=== PATIENT | male | born 1955 | race Caucasian/White ===

== ENCOUNTER 2018-11-03 12:39 | Inpatient (IN) | payer MEDICARE ==
[~2018-11-03] VITALS: Ht 167.6 cm; Wt 82.0 kg
--- NOTE | 2018-11-03 13:14 | ERD ---
ER Documentation Chief Complaint Chief Complaint dialysis catheter bleed, did not start dialysis; HPI The patient is a 63-year-old male, presenting to the ER because of bleeding from the left upper extremity AV fistula, unable to have dialysis today. He denies any fever, chills, neck pain, chest pain, dyspnea, abdominal pain, complains of diarrhea for 1 day, denies hematemesis/hematochezia. Past medical history: Chronic kidney disease On hemodialysis Friday and Friday, diabetes mellitus, hypertension, chronic right ankle ulcer, hepatitis C, dyslipidemia, BPH Past surgical history: Left upper extremity AV fistula, left below-knee amputation ROS All systems reviewed and are negative except as per history of present illness. Medications Home Meds Reported Medications Acetaminophen* (Acetaminophen*) 650 Mg Tablet, 650 MG PO Q4 PRN for MILD PAIN LEVEL 1-3, #30 TAB 11/03/18 Amlodipine Besylate* (Norvasc*) 10 Mg Tablet, 10 MG PO DAILY, TAB HOLD FOR SBP <110 OR HR <60 11/03/18 Sertraline Hcl* (Zoloft*) 50 Mg Tablet, 50 MG PO DAILY, #30 TAB 11/03/18 [place]-3/Dha/Epa/Fish Oil (Fish Oil 500 mg Softgel) 1 Each Capsule, 1 EACH PO DAILY, CAP 11/03/18 Gabapentin* (Gabapentin*) 300 Mg Capsule, 300 MG PO TID, #90 CAP 11/03/18 Pravastatin Sodium* (Pravastatin Sodium*) 40 Mg Tablet, 40 MG PO HS, TAB 11/03/18 Hydralazine Hcl* (Hydralazine Hcl*) 50 Mg Tab, 50 MG PO QID, #60 TAB HOLD FOR SBP<110 OR HR<60 11/03/18 Propranolol Hcl* (Propranolol Hcl*) 10 Mg Tablet, 10 MG PO BID, TAB HOLD FOR SBP<110 OR HR<60 11/03/18 Terazosin Hcl* (Terazosin Hcl*) 10 Mg Capsule, 10 MG PO HS, CAP 11/03/18 Sevelamer Carbonate* (Renvela*) 800 Mg Tablet, 2.4 GM PO WITH MEALS, TAB 11/03/18 Magnesium Hydroxide* (Milk Of Magnesia*) 400 Mg/5 Ml Oral.susp, 30 ML PO QHS PRN for CONSTIPATION, ML 11/03/18 Folic Acid/Vitamin B Comp W-C (Nephrocaps Capsule) 1 Mg Capsule, 1 MG PO DAILY, CAP 11/03/18 Aspirin (Low Dose Aspirin) 81 Mg Tablet.dr, 81 MG PO DAILY, #30 TAB 11/03/18 Omeprazole* (Omeprazole*) 20 Mg Capsule.dr, 20 MG PO DAILY, #30 CAP 11/03/18 Ascorbic Acid* (Vitamin C*) 500 Mg Capsule.sa, 500 MG PO DAILY, CAP 11/03/18 Allergies Allergies: Coded Allergies: Penicillins (Verified Allergy, Unknown, 11/03/18) Physical Exam Vitals Vital Signs Date Temp Pulse Resp B/P (MAP) Pulse Ox O2 O2 Flow FiO2 Time Delivery Rate 11/03/18 98.1 73 21 147/64 100 Room Air 17:27 (91) 11/03/18 70 19 121/67 98 Room Air 15:25 (85) 11/03/18 Nasal 2 13:41 Cannula 11/03/18 98.3 69 18 100/64 93 Room Air 13:20 (76) 11/03/18 98.3 69 18 100/64 93 12:48 (76) Physical Exam Const: No acute distress. Head: Atraumatic. Eyes: Normal Conjunctiva. ENT: Normal External Ears, Nose and Mouth. Neck: Full range of motion. No meningismus. Resp: Clear to auscultation bilaterally. Cardio: Regular rate and rhythm. Abd: Soft, non distended, normal bowel sounds, non tender. Skin: No petechiae or rashes. Back: No midline or flank tenderness. Ext: Left upper extremity AV fistula with actively bleeding, palpable pulses, was able to stop with pressure dressing Neur: Awake and alert. No focal deficit Psych: Normal Mood and Affect. Result Diagram: 11/03/18 1335 11/03/18 1335 Results 24 hrs Laboratory Tests Test 11/03/18 13:35 11/03/18 16:46 White Blood Count 8.2 10^3/ul Red Blood Count 2.39 10^6/ul Hemoglobin 7.5 g/dl Hematocrit 23.2 % Mean Corpuscular Volume 97.1 fl Mean Corpuscular Hemoglobin 31.4 pg Mean Corpuscular Hemoglobin Concent 32.3 g/dl Red Cell Distribution Width 16.2 % Platelet Count 190 10^3/UL Mean Platelet Volume 9.1 fl Immature Granulocytes % 0.500 % Neutrophils % 79.1 % Lymphocytes % 9.7 % Monocytes % 5.6 % Eosinophils % 4.9 % Basophils % 0.2 % Nucleated Red Blood Cells % 0.0 /100WBC Immature Granulocytes # 0.040 10^3/ul Neutrophils # 6.5 10^3/ul Lymphocytes # 0.8 10^3/ul Monocytes # 0.5 10^3/ul Eosinophils # 0.4 10^3/ul Basophils # 0.0 10^3/ul Nucleated Red Blood Cells # 0.0 10^3/ul Sodium Level 139 mmol/L Potassium Level 5.6 mmol/L Chloride Level 98 mmol/L Carbon Dioxide Level 31 mmol/L Anion Gap 10 Blood Urea Nitrogen 48 mg/dl Creatinine 7.16 mg/dl Est Glomerular Filtrat Rate mL/min 8 mL/min Glucose Level 125 mg/dl Calcium Level 9.3 mg/dl Bedside Glucose 309 mg/dL Current Medications Medications Dose Sig/Spike Start Time Status Last (Trade) Ordered Route PRN Stop Time Admin Dose Reason Admin Sodium 30 gm ONCE STAT 11/03/18 DC 11/03/18 Polystyrene PO 15:28 16:50 Sulfonate 11/03/18 17:45 (Kayexelate 15 Gm Kit (Powder+Sorbi adriano)) Albuterol 15 mg ONCE STAT 11/03/18 DC 11/03/18 (Proventil INH 15:28 17:01 0.5% (Neb)) 11/03/18 15:31 Insulin 5 unit ONCE STAT 11/03/18 DC 11/03/18 Human IVP 15:28 16:48 Regular 11/03/18 15:31 (Humulin R) Dextrose 50 ml ONCE ONCE 11/03/18 DC 11/03/18 (D50w IV 15:30 16:38 Syringe) 11/03/18 15:31 IV Flush 3 ml PER 11/03/18 (NS 3 ml) PROTOCOL IV 17:30 Ondansetron 4 mg Q6H PRN 11/03/18 HCl (Zofran IV 17:30 Inj) NAUSEA/VOMITI NG 650 mg Q6H PRN 11/03/18 Acetaminophen PO .PAIN 1-3 17:30 (Tylenol OR TEMP Tab) 650 mg Q4 PRN PO 11/03/18 DC Acetaminophen MILD PAIN 17:30 (Tylenol LEVEL 1-3 11/03/18 17:37 Tab) Amlodipine 10 mg DAILY PO 11/04/18 Besylate 09:00 (Norvasc) Ascorbic 500 mg DAILY PO 11/04/18 Acid 09:00 (Vitamin C) Gabapentin 300 mg TID PO 11/03/18 (Neurontin) 21:00 Hydralazine 50 mg QID PO 11/03/18 HCl 21:00 (Apresoline) Magnesium 30 ml QHS PRN 11/03/18 Hydroxide PO 17:30 (Milk Of Mag) CONSTIPATION Propranolol 10 mg BID PO 11/03/18 HCl 21:00 (Inderal) Sertraline 50 mg DAILY PO 11/04/18 HCl 09:00 (Zoloft) Sevelamer 2.4 gm WITH MEALS 11/03/18 UNV Carbonate PO 18:00 (Renvela) Terazosin 10 mg HS PO 11/03/18 HCl 21:00 (Hytrin) 1 each DAILY PO 11/04/18 UNV Miscellaneous 09:00 Information 40 mg DAILY@0600 11/04/18 Pantoprazole PO 06:00 (Protonix Tab) 10 mg HS PO 11/03/18 Atorvastatin 21:00 Calcium (Lipitor) Sodium 30 gm ONCE ONCE 11/03/18 DC Polystyrene PO 18:00 Sulfonate 11/03/18 18:01 (Kayexalate) Procedures/[place] [address] Radiology Main Line: [phone] DIAGNOSTIC IMAGING REPORT Patient: KEN GIBSON : 1955 Age: 63 Sex: M MR #: [id number] DOS: 11/03/18 1315 Ordering MD: ERI UNGER MD Location: E/R Room/Bed: PROCEDURE: XR Chest. CLINICAL INDICATION: Chest pain TECHNIQUE: Single portable view of the chest was obtained COMPARISON: None FINDINGS: There is mild cardiomegaly. There are mild bibasilar atelectatic changes. The lungs are otherwise clear. There is no pleural effusion or pneumothorax. RPTAT: AA IMPRESSION: Mild bibasilar atelectatic changes. Mild cardiomegaly. .Marcos Villeda MD, MD Date Time Electronically viewed and signed by .Marcos Villeda MD, on 11/03/2018 14:11 .S/ CC: ERI UNGER MD [phone] EKG: Read by emergency physician Rate/Rhythm: Normal Sinus Rhythm 68 beats/min QRS, ST, T-waves: No ST elevation, no T inversion, low voltage Impression: Abnormal EKG Consultation: I discussed the patient with the vascular surgeon Dr. Galdamez at 4:45pm, who was made aware of the lab, the patient condition and he accepted the consult MEDICAL MAKING DECISION: The patient is a 63-year-old male, presenting with acute bleeding of the left upper extremity AV fistula, acute hyperkalemia.. He was treated with partial compression to stop the bleeding, D50 IV, 5 unit of regular insulin IV, Kayexalate 30 g p.o. and albuterol 15 mg nebulizer for acute hyperkalemia with good response Critical Care: Time: 35 minutes excluding all billable procedures. Treatments/Evaluations: Close monitoring and treatment of unstable vital signs, cardiorespiratory, and neurologic status, while maintaining tight balance of fluid, respiratory, and cardiac interventions. Departure Diagnosis: Primary Impression: Hemorrhage of arteriovenous fistula Additional Impressions: Hyperkalemia Anemia Condition: Stable Comments I discussed the findings with the patient. I discussed the patient with Dr Sparks at 4:20pm , who was made aware of the lab, the treatment, the patient condition. The patient is admitted to [facility] Disclaimer: Inadvertent spelling and grammatical errors are likely due to EHR/dictation software use and do not reflect on the overall quality of patient care. Also, please note that the electronic time recorded on this note does not necessarily reflect the actual time of the patient encounter. ERI UNGER MD November 03, 2018 13:14
[2018-11-03] MEDS ORDERED: OMEP20CA16 PO (14:03)
[2018-11-03] MEDS ORDERED: ASCO500C7 PO (14:03)
[2018-11-03] MEDS ORDERED: FOLI1CAP PO (14:04)
[2018-11-03] MEDS ORDERED: MAGN400O19 PO (14:04)
[2018-11-03] MEDS ORDERED: ASPI81TA52 PO (14:04)
[2018-11-03] MEDS ORDERED: SEVE800T7 PO (14:05)
[2018-11-03] MEDS ORDERED: TERA10CA3 PO (14:06)
[2018-11-03] MEDS ORDERED: PROP10TA6 PO (14:07)
[2018-11-03] MEDS ORDERED: HYDR-3672 PO (14:08)
[2018-11-03] MEDS ORDERED: PRAV40TA76 PO (14:08)
[2018-11-03] MEDS ORDERED: OMEG-144 PO (14:09)
[2018-11-03] MEDS ORDERED: GABA300C16 PO (14:09)
[2018-11-03] MEDS ORDERED: SERT50TA PO (14:10)
[2018-11-03] MEDS ORDERED: ACET-2047 PO (14:11)
[2018-11-03] MEDS ORDERED: AMLO-218 PO (14:11)
[2018-11-03] MEDS ORDERED: INSULIN REGULAR, HUMAN 100 UNIT/1 ML 3ML VIAL IVP STA (15:28)
[2018-11-03] MEDS ORDERED: ALBUTEROL 0.5% (NEB) 2.5 MG/0.5 ML AMP INH STA (15:28)
[2018-11-03] MEDS ORDERED: DEXTROSE 50% 50 ML SYRINGE IV ONE (15:30)
[2018-11-03] MEDS: SODIUM POLYSTYRENE 15 GM KIT (POWDER + SORBITOL) PO STA ×2 (16:39→16:50)
[2018-11-03] MEDS ORDERED: NACL 0.9% 3 ML SYG IV SCH (17:30)
[2018-11-03] MEDS ORDERED: ACETAMINOPHEN 325 MG TAB PO PRN ×2 (17:30)
[2018-11-03] MEDS ORDERED: MAGNESIUM HYDROXIDE 30ML CUP PO PRN (17:30)
[2018-11-03] MEDS ORDERED: ONDANSETRON 4 MG INJ IV PRN (17:30)
--- NOTE | 2018-11-03 17:45 | HP ---
Date/Time of Note Date/Time of Note DATE: 11/03/18 TIME: 17:30 Assessment/Plan VTE Prophylaxis SCD applied (from Nsg): Yes Pharmacological prophylaxis: NA/contraindicated Pharm contraindication: bleeding Lines/Catheters IV Catheter Type (from Nrsg): Saline Lock Assessment/Plan Assessment/Plan 63 yo obese man with history of ESRD presents with bleeding fistula #Bleeding fistula - Currently has tourniquet on arm - Holding antiplatelets, anticoag. - Dr. Allan consulted - Patient is medically optimized for urgent vascular surgery. No further cardiac or medical workup needed. #ESRD - Will consult renal for routine HD. #HTN - Continue home antihypertensives #Dyslipidemia - Cont home statin DVT: SCDs GI: PPI Result Diagram: 11/03/18 1335 11/03/18 1335 HPI/ROS Admit Date/Time Admit Date/Time 03 Nov 2018 Hx of Present Illness Mr. Taylor is an obese man with ESRD who presents with a bleeding AV fistula. He has a bad habit of picking at his fistula scabs. A week ago was at [facility] ED for the same problem, but it was dressed in the ED and he did not require admission or surgery. Last dialysis was Friday (3 days [facility]). On Friday he peeled his dressing back and picked at his scab a bit and it started oozing b lood, so he put the dressing back. Friday he went to dialysis as scheduled, the nurse removed the dressing and there was a brisk jet of high pressure arterial blood. The patient was sent to the ED without getting dialysis. He stays at [facility]. In the ED he was afebrile, vitals normal. Labs notable for Hgb 7.5 and K 5.6, otherwise unremarkable. Dr. Segura evaluated the fistula for repair but was unable. Tourniquet was left in place, Dr. Allan from vascular surgery was called. ROS Denies recent fever, chills, night sweats, anorexia, weight loss, dysphagia, d yspnea, cough, chest pain/pressure/palpitations, nausea, vomiting, abdominal pain ,diarrhea, constipation, melena, hematochezia. 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 Social History Alcohol Use: none Smoking Status: Never smoker Drug Use: none Exam/Review of Systems Vital Signs Vitals Vital Signs Date Temp Pulse Resp B/P (MAP) Pulse Ox O2 O2 Flow FiO2 Time Delivery Rate 11/03/18 98.1 73 21 147/64 100 Room Air 17:27 (91) 11/03/18 2 13:41 Exam Exam Gen: Well developed man supine in gurney, some discomfort from tourniquet. Eyes: PERRL, no icterus HEENT: Moist mucous membranes, clear oropharynx Neck: No lymphadenopathy, supple Card: Regular rate and rhythm, no murmurs Pulm: Clear to auscultation bilaterally. Abd: Soft, nontender, nondistended. Normoactive bowel sounds. Ext: L upper arm has fistula firmly secured with tourniquet. Distally it is mottled with poor pulses. Skin: warm, dry, well perfused. LUIS DANIEL WATKINS MD November 03, 2018 17:40
[2018-11-03] MEDS ORDERED: NA POLYST SULFON 15 GM/60 ML BTL PO ONE (18:00)
[2018-11-04] VITALS (21 sets, daily range): BP systolic 119–165; BP diastolic 54–72; PULSE 59–85; RESP 13–19; Ht 167.6 cm; Wt 82.0 kg
[2018-11-04] MEDS: ATORVASTATIN 10 MG TAB PO SCH ×2 (03:30→21:19)
[2018-11-04] MEDS: FISH OIL 1,000 MG CAP PO SCH ×2 (03:30→09:19)
[2018-11-04] MEDS: TERAZOSIN 5 MG CAP PO SCH ×2 (03:30→21:19)
[2018-11-04] MEDS: SEVELAMER CARBONATE 2.4 GM PKT PO SCH ×4 (03:30→16:59)
[2018-11-04] MEDS: GABAPENTIN 300 MG CAP PO SCH ×4 (03:30→21:19)
[2018-11-04] MEDS: PROPRANOLOL 10 MG TAB PO SCH ×3 (03:30→21:19)
[2018-11-04] MEDS ORDERED: SOD CHLORIDE 0.9% 1,000 ML IV SCH (05:00)
[2018-11-04] MEDS ORDERED: DEXTROSE 50% 50 ML SYRINGE IV PRN ×2 (05:30)
[2018-11-04] MEDS ORDERED: GLUCOSE GEL 15 GRAM TUBE BUCCAL PRN (05:30)
[2018-11-04] MEDS ORDERED: GLUCAGON 1 MG INJ IM PRN (05:30)
[2018-11-04] MEDS ORDERED: GLUCOSE GEL 15 GRAM TUBE PO PRN ×2 (05:30)
[2018-11-04] MEDS: INSULIN ASPART [NOVOLOG] 3 ML PEN SC SCH ×5 (06:00→21:00)
[2018-11-04] MEDS: PANTOPRAZOLE (EC) 40 MG TAB PO SCH (06:17)
[2018-11-04] MEDS ORDERED: SOD CHLORIDE 0.9% 250 ML IV* ONE (08:06)
[2018-11-04] MEDS: ASCORBIC ACID 500 MG TAB PO SCH (09:19)
[2018-11-04] MEDS: AMLODIPINE 10 MG TAB PO SCH (09:19)
[2018-11-04] MEDS: SERTRALINE 50 MG TAB PO SCH (09:19)
--- NOTE | 2018-11-04 11:21 | PN ---
Date/Time of Note Date/Time of Note DATE: 11/04/18 TIME: 11:17 Assessment/Plan VTE Prophylaxis Risk score (from Nsg)>0 risk: 4 SCD applied (from Ns): No SCD contraindicated: other (no) Pharmacological prophylaxis: NA/contraindicated Pharm contraindication: bleeding Lines/Catheters IV C[facility]ter Type (from [facility]): Saline Lock Urinary Cath still in place: No Assessment/Plan Assessment/Plan 63 yo obese man with history of ESRD presents with bleeding fistula #Bleeding fistula - Currently has tourniquet on arm - Holding antiplatelets, anticoag. - Dr. Allan consulted - Patient is medically optimized for urgent vascular surgery. No further cardiac or medical workup needed. #ESRD - Will consult renal for routine HD. #HTN - Continue home antihypertensives #Dyslipidemia - Cont home statin DVT: SCDs GI: PPI Result Diagram: 11/04/18 0640 11/04/18 0640 Subjective 24 Hr Interval Summary Free Text/Dictation No acute overnight events. Patient seen by Dr. Allan. Plan for surgery tonight after tranfusion. Getting 2 units pRBCs. Exam/Review of Systems Exam Vitals Vital Signs Date Temp Pulse Resp B/P (MAP) Pulse Ox O2 O2 Flow FiO2 Time Delivery Rate 11/04/18 85 08:16 11/04/18 99.3 18 155/67 91 07:07 (96) 11/04/18 Room Air 03:20 11/03/18 2 13:41 Exam Gen: Well developed man supine in gurney, comfortable. Eyes: PERRL, no icterus HEENT: Moist mucous membranes, clear oropharynx Neck: No lymphadenopathy, supple Card: Regular rate and rhythm, no murmurs Pulm: Clear to auscultation bilaterally. Abd: Soft, nontender, nondistended. Normoactive bowel sounds. Ext: L upper arm has fistula firmly secured with dressing. Distally, extremity is slightly swollen but intact peripheral pulses. Skin: warm, dry, well perfused. Results Results 24hrs Laboratory Tests Test 11/03/18 13:35 11/03/18 16:46 11/04/18 06:14 11/04/18 06:40 White Blood Count 8.2 8.4 Red Blood Count 2.39 L 2.17 L Hemoglobin 7.5 L 6.9 *L Hematocrit 23.2 L 21.2 L Mean Corpuscular 97.1 97.7 Volume Mean Corpuscular 31.4 31.8 Hemoglobin Mean Corpuscular 32.3 32.5 Hemoglobin Concent Red Cell 16.2 H 16.2 H Distribution Width Platelet Count 190 176 Mean Platelet Volume 9.1 9.5 Immature 0.500 H 0.500 H Granulocytes % Neutrophils % 79.1 H 80.3 H Lymphocytes % 9.7 L 9.4 L Monocytes % 5.6 5.0 Eosinophils % 4.9 4.6 Basophils % 0.2 0.2 Nucleated Red Blood 0.0 0.0 Cells % Immature 0.040 H 0.040 H Granulocytes # Neutrophils # 6.5 6.8 Lymphocytes # 0.8 0.8 Monocytes # 0.5 0.4 Eosinophils # 0.4 0.4 Basophils # 0.0 0.0 Nucleated Red Blood 0.0 0.0 Cells # Sodium Level 139 140 Potassium Level 5.6 H 5.3 H Chloride Level 98 101 Carbon Dioxide Level 31 28 Anion Gap 10 11 Blood Urea Nitrogen 48 H 57 H Creatinine 7.16 H 7.90 H Est Glomerular 8 L 7 L Filtrat Rate mL/min Glucose Level 125 120 Calcium Level 9.3 9.4 Bedside Glucose 309 H 142 Hemoglobin A1c 5.7 Phosphorus Level 4.0 Magnesium Level 2.5 Total Bilirubin 0.1 L Direct Bilirubin 0.00 Indirect Bilirubin 0.1 Aspartate Amino 11 L Transf (AST/SGOT) Alanine 18 Aminotransferase (AL T/SGPT) Alkaline Phosphatase 86 Total Protein 5.7 L Albumin 3.3 Globulin 2.40 Albumin/Globulin 1.37 Ratio Thyroid Stimulating 2.290 Hormone (TSH) Test 11/04/18 09:16 Bedside Glucose 140 Medications Medication Current Medications IV Flush (NS 3 ml) 3 ml PER PROTOCOL IV ; Start 11/03/18 at 17:30 Ondansetron HCl (Zofran Inj) 4 mg Q6H PRN IV NAUSEA/VOMITING; Start 11/03/18 at 17:30 Acetaminophen (Tylenol Tab) 650 mg Q6H PRN PO .PAIN 1-3 OR TEMP Last administered on 11/04/18at 09:28; Admin Dose 650 MG; Start 11/03/18 at 17:30 Amlodipine Besylate (Norvasc) 10 mg DAILY PO Last administered on 11/04/18at 09:19; Admin Dose 10 MG; Start 11/04/18 at 09:00 Ascorbic Acid (Vitamin C) 500 mg DAILY PO Last administered on 11/04/18 09:19; Admin Dose 500 MG; Start 11/04/18 at 09:00 Gabapentin (Neurontin) 300 mg TID PO Last administered on 11/04/18at 09:18; Admin Dose 300 MG; Start 11/03/18 at 21:00 Hydralazine HCl (Apresoline) 50 mg QID PO Last administered on 11/04/18at 09:18; Admin Dose 50 MG; Start 11/03/18 at 21:00 Magnesium Hydroxide (Milk Of Mag) 30 ml QHS PRN PO CONSTIPATION; Start 11/03/18 at 17:30 Propranolol HCl (Inderal) 10 mg BID PO Last administered on 11/04/18at 09:19; Admin Dose 10 MG; Start 11/03/18 at 21:00 Sertraline HCl (Zoloft) 50 mg DAILY PO Last administered on 11/04/18at 09:19; Admin Dose 50 MG; Start 11/04/18 at 09:00 Sevelamer Carbonate (Renvela) 2.4 gm WITH MEALS PO ; Start 11/03/18 at 18:00 Terazosin HCl (Hytrin) 10 mg HS PO ; Start 11/03/18 at 21:00 Fish Oil (Fish Oil) 1,000 mg DAILY PO Last administered on 11/04/18at 09:19; Admin Dose 1,000 MG; Start 11/03/18 at 18:30 Pantoprazole (Protonix Tab) 40 mg DAILY@0600 PO Last administered on 11/04/18at 06:17; Admin Dose 40 MG; Start 11/04/18 at 06:00 Atorvastatin Calcium (Lipitor) 10 mg HS PO ; Start 11/03/18 at 21:00 Diagnostic Test (Pha) (Accu-Chek) 1 ea 02 XX ; Start 11/05/18 at 02:00 Insulin Aspart (Novolog Insulin Pen) NOVOLOG *MILD* ALGORI... Q4 SC ; Start 11/04/18 at 05:00 Sodium Chloride 1,000 ml @ 30 mls/hr Q24H IV Last administered on 11/04/18at 05:00; Admin Dose 30 MLS/HR; Start 11/04/18 at 05:00; Stop 11/05/18 at 14:19 Miscellaneous Information 1 ea NOTE XX ; Start 11/04/18 at 05:30 Glucose (Glutose) 15 gm Q15M PRN PO DECREASED GLUCOSE; Start 11/04/18 at 05:30 Glucose (Glutose) 22.5 gm Q15M PRN PO DECREASED GLUCOSE; Start 11/04/18 at 05:30 Dextrose (D50w Syringe) 25 ml Q15M PRN IV DECREASED GLUCOSE; Start 11/04/18 at 05:30 Dextrose (D50w Syringe) 50 ml Q15M PRN IV DECREASED GLUCOSE; Start 11/04/18 at 05:30 Glucagon (Glucagen) 1 mg Q15M PRN IM DECREASED GLUCOSE; Start 11/04/18 at 05:30 Glucose (Glutose) 15 gm Q15M PRN BUCCAL DECREASED GLUCOSE; Start 11/04/18 at 05:30 LUIS DANIEL WATKINS MD November 04, 2018 11:20
--- NOTE | 2018-11-04 15:15 | CONS ---
Assessment/Plan Assessment/Plan Assessment/Plan (Daily) 1. acute hyperkalemia 2. LUE AVF site bleeding possibly arterial bleeding 3. ESRD on HD TTS schedule 4. H/o HTN 5. Morbid obesity Plan: HD today after AVF surgery - pt regular scheedule for HD is TTS, last HD on friday10/31/18 planning for AVF repair BP stable, afebrile will continue to follow up Thanks for consultation, I will continue to follow up Consultation Date/Type/Reason Admit Date/Time 03 Nov 2018 Date of Consultation: November 04, 2018 Type of Consult NEPHROLOGY Reason for Consultation ESRD on HD with AVF bleeding ,a cute hyperkalemia Requesting Provider: FELIPE AL MD Date/Time of Note DATE: 11/04/18 TIME: 15:15 Hx of Present Illness 63 obese man with ESRD who presents with a bleeding AV fistula. He has a bad habit of picking at his fistula scabs. A week ago was at [facility] ED for the same problem, but it was dressed in the ED and he did not require admission or surgery. Last dialysis was Friday (3 days [employer]). On Friday he peeled his dressing back and picked at his scab a bit and it started oozing blood, so he put the dressing back. Friday he went to dialysis as scheduled, the nurse removed the dressing and there was a brisk jet of high pressure ar terial blood. The patient was sent to the ED without getting dialysis. He stays at [facility]. In the ED he was afebrile, vitals normal. Labs notable for Hgb 7.5 and K 5.6, otherwise unremarkable. vascular surgery has been consulted on the case, paln for AVF repair today and renal has been consulted for HD last HD was done on friday10/31/18 Constitutional: poor po Eyes: no complaints ENT: no complaints Respiratory: no complaints Cardiovascular: no complaints Gastrointestinal: no complaints Genitourinary: no complaints Musculoskeletal: no complaints Skin: no complaints Neurologic: no complaints Endocrine: no complaints Lymphatic: no complaints Psychological: no complaints Immunologic: no complaints Past Medical History Medical History: high cholesterol, hypertension, other (ESD on HD ) Home Meds Reported Medications Acetaminophen* (Acetaminophen*) 650 Mg Tablet, 650 MG PO Q4 PRN for MILD PAIN LEVEL 1-3, #30 TAB 11/03/18 Amlodipine Besylate* (Norvasc*) 10 Mg Tablet, 10 MG PO DAILY, TAB HOLD FOR SBP <110 OR HR <60 11/03/18 Sertraline Hcl* (Zoloft*) 50 Mg Tablet, 50 MG PO DAILY, #30 TAB 11/03/18 [place]-3/Dha/Epa/Fish Oil (Fish Oil 500 mg Softgel) 1 Each Capsule, 1 EACH PO DAILY, CAP 11/03/18 Gabapentin* (Gabapentin*) 300 Mg Capsule, 300 MG PO TID, #90 CAP 11/03/18 Pravastatin Sodium* (Pravastatin Sodium*) 40 Mg Tablet, 40 MG PO HS, TAB 11/03/18 Hydralazine Hcl* (Hydralazine Hcl*) 50 Mg Tab, 50 MG PO QID, #60 TAB HOLD FOR SBP<110 OR HR<60 11/03/18 Propranolol Hcl* (Propranolol Hcl*) 10 Mg Tablet, 10 MG PO BID, TAB HOLD FOR SBP<110 OR HR<60 11/03/18 Terazosin Hcl* (Terazosin Hcl*) 10 Mg Capsule, 10 MG PO HS, CAP 11/03/18 Sevelamer Carbonate* (Renvela*) 800 Mg Tablet, 2.4 GM PO WITH MEALS, TAB 11/03/18 Magnesium Hydroxide* (Milk Of Magnesia*) 400 Mg/5 Ml Oral.susp, 30 ML PO QHS PRN for CONSTIPATION, ML 11/03/18 Folic Acid/Vitamin B Comp W-C (Nephrocaps Capsule) 1 Mg Capsule, 1 MG PO DAILY, CAP 11/03/18 Aspirin (Low Dose Aspirin) 81 Mg Tablet.dr, 81 MG PO DAILY, #30 TAB 11/03/18 Omeprazole* (Omeprazole*) 20 Mg Capsule.dr, 20 MG PO DAILY, #30 CAP 11/03/18 Ascorbic Acid* (Vitamin C*) 500 Mg Capsule.sa, 500 MG PO DAILY, CAP 11/03/18 Medications Current Medications IV Flush (NS 3 ml) 3 ml PER PROTOCOL IV ; Start 11/03/18 at 17:30 Ondansetron HCl (Zofran Inj) 4 mg Q6H PRN IV NAUSEA/VOMITING; Start 11/03/18 at 17:30 Acetaminophen (Tylenol Tab) 650 mg Q6H PRN PO .PAIN 1-3 OR TEMP Last administered on 11/04/18 09:28; Admin Dose 650 MG; Start 11/03/18 at 17:30 Amlodipine Besylate (Norvasc) 10 mg DAILY PO Last administered on 11/04/18 09:19; Admin Dose 10 MG; Start 11/04/18 at 09:00 Ascorbic Acid (Vitamin C) 500 mg DAILY PO Last administered on 11/04/18 09:19; Admin Dose 500 MG; Start 11/04/18 at 09:00 Gabapentin (Neurontin) 300 mg TID PO Last administered on 11/04/18 12:25; Admin Dose 300 MG; Start 11/03/18 at 21:00 Hydralazine HCl (Apresoline) 50 mg QID PO Last administered on 11/04/18 12:25; Admin Dose 50 MG; Start 11/03/18 at 21:00 Magnesium Hydroxide (Milk Of Mag) 30 ml QHS PRN PO CONSTIPATION; Start 11/03/18 at 17:30 Propranolol HCl (Inderal) 10 mg BID PO Last administered on 11/04/18 09:19; Admin Dose 10 MG; Start 11/03/18 at 21:00 Sertraline HCl (Zoloft) 50 mg DAILY PO Last administered on 11/04/18 09:19; Admin Dose 50 MG; Start 11/04/18 at 09:00 Sevelamer Carbonate (Renvela) 2.4 gm WITH MEALS PO ; Start 11/03/18 at 18:00 Terazosin HCl (Hytrin) 10 mg HS PO ; Start 11/03/18 at 21:00 Fish Oil (Fish Oil) 1,000 mg DAILY PO Last administered on 11/04/18 09:19; Admin Dose 1,000 MG; Start 11/03/18 at 18:30 Pantoprazole (Protonix Tab) 40 mg DAILY@0600 PO Last administered on 11/04/18 06:17; Admin Dose 40 MG; Start 11/04/18 at 06:00 Atorvastatin Calcium (Lipitor) 10 mg HS PO ; Start 11/03/18 at 21:00 Diagnostic Test (Pha) (Accu-Chek) 1 ea 02 XX ; Start 11/05/18 at 02:00 Insulin Aspart (Novolog Insulin Pen) NOVOLOG *MILD* ALGORI... Q4 SC ; Start 11/04/18 at 05:00 Sodium Chloride 1,000 ml @ 30 mls/hr Q24H IV Last administered on 11/04/18at 05:00; Admin Dose 30 MLS/HR; Start 11/04/18 at 05:00; Stop 11/05/18 at 14:19 Miscellaneous Information 1 ea NOTE XX ; Start 11/04/18 at 05:30 Glucose (Glutose) 15 gm Q15M PRN PO DECREASED GLUCOSE; Start 11/04/18 at 05:30 Glucose (Glutose) 22.5 gm Q15M PRN PO DECREASED GLUCOSE; Start 11/04/18 at 05:30 Dextrose (D50w Syringe) 25 ml Q15M PRN IV DECREASED GLUCOSE; Start 11/04/18 at 05:30 Dextrose (D50w Syringe) 50 ml Q15M PRN IV DECREASED GLUCOSE; Start 11/04/18 at 05:30 Glucagon (Glucagen) 1 mg Q15M PRN IM DECREASED GLUCOSE; Start 11/04/18 at 05:30 Glucose (Glutose) 15 gm Q15M PRN BUCCAL DECREASED GLUCOSE; Start 11/04/18 at 05:30 Allergies: Coded Allergies: Penicillins (Verified Allergy, Unknown, 11/03/18) Past Surgical History Past Surgical Hx: other (AVF for HD access ) Family History Significant Family History: no pertinent family hx Social History Alcohol Use: none Smoking Status: Never smoker Drug Use: none Exam/Review of Systems Exam Vitals Vital Signs Date Temp Pulse Resp B/P (MAP) Pulse Ox O2 O2 Flow FiO2 Time Delivery Rate 11/04/18 59 14:12 11/04/18 97.6 17 145/63 91 11:25 (90) 11/04/18 Room Air 03:20 11/03/18 2 13:41 Exam Gen: Well developed man supine in gurney, some discomfort from tourniquet. Eyes: PERRL, no icterus HEENT: Moist mucous membranes, clear oropharynx Neck: No lymphadenopathy, supple Card: Regular rate and rhythm, no murmurs Pulm: Clear to auscultation bilaterally. Abd: Soft, nontender, nondistended. Normoactive bowel sounds. Ext: L upper arm has fistula firmly secured with tourniquet. Skin: warm, dry, well perfused. Results Result Diagram: 11/04/18 0640 11/04/18 0640 Results 24hrs Laboratory Tests Test 11/03/18 16:46 11/04/18 06:14 11/04/18 06:40 11/04/18 09:16 Bedside Glucose 309 H 142 140 White Blood Count 8.4 Red Blood Count 2.17 L Hemoglobin 6.9 *L Hematocrit 21.2 L Mean Corpuscular 97.7 Volume Mean Corpuscular 31.8 Hemoglobin Mean Corpuscular 32.5 Hemoglobin Concent Red Cell 16.2 H Distribution Width Platelet Count 176 Mean Platelet Volume 9.5 Immature 0.500 H Granulocytes % Neutrophils % 80.3 H Lymphocytes % 9.4 L Monocytes % 5.0 Eosinophils % 4.6 Basophils % 0.2 Nucleated Red Blood 0.0 Cells % Immature 0.040 H Granulocytes # Neutrophils # 6.8 Lymphocytes # 0.8 Monocytes # 0.4 Eosinophils # 0.4 Basophils # 0.0 Nucleated Red Blood 0.0 Cells # Sodium Level 140 Potassium Level 5.3 H Chloride Level 101 Carbon Dioxide Level 28 Anion Gap 11 Blood Urea Nitrogen 57 H Creatinine 7.90 H Est Glomerular 7 L Filtrat Rate mL/min Glucose Level 120 Hemoglobin A1c 5.7 Calcium Level 9.4 Phosphorus Level 4.0 Magnesium Level 2.5 Total Bilirubin 0.1 L Direct Bilirubin 0.00 Indirect Bilirubin 0.1 Aspartate Amino 11 L Transf (AST/SGOT) Alanine 18 Aminotransferase (AL T/SGPT) Alkaline Phosphatase 86 Total Protein 5.7 L Albumin 3.3 Globulin 2.40 Albumin/Globulin 1.37 Ratio Thyroid Stimulating 2.290 Hormone (TSH) Test 11/04/18 12:24 Bedside Glucose 140 Medications Medication Current Medications IV Flush (NS 3 ml) 3 ml PER PROTOCOL IV ; Start 11/03/18 at 17:30 Ondansetron HCl (Zofran Inj) 4 mg Q6H PRN IV NAUSEA/VOMITING; Start 11/03/18 at 17:30 Acetaminophen (Tylenol Tab) 650 mg Q6H PRN PO .PAIN 1-3 OR TEMP Last admi nistered on 11/04/18at 09:28; Admin Dose 650 MG; Start 11/03/18 at 17:30 Amlodipine Besylate (Norvasc) 10 mg DAILY PO Last administered on 11/04/18 09:19; Admin Dose 10 MG; Start 11/04/18 at 09:00 Ascorbic Acid (Vitamin C) 500 mg DAILY PO Last administered on 11/04/18 09:19; Admin Dose 500 MG; Start 11/04/18 at 09:00 Gabapentin (Neurontin) 300 mg TID PO Last administered on 11/04/18at 12:25; Ad min Dose 300 MG; Start 11/03/18 at 21:00 Hydralazine HCl (Apresoline) 50 mg QID PO Last administered on 11/04/18 12:25; Admin Dose 50 MG; Start 11/03/18 at 21:00 Magnesium Hydroxide (Milk Of Mag) 30 ml QHS PRN PO CONSTIPATION; Start 11/03/18 at 17:30 Propranolol HCl (Inderal) 10 mg BID PO Last administered on 11/04/18 09:19; Admin Dose 10 MG; Start 11/03/18 at 21:00 Sertraline HCl (Zoloft) 50 mg DAILY PO Last administered on 11/04/18 09:19; Admin Dose 50 MG; Start 11/04/18 at 09:00 Sevelamer Carbonate (Renvela) 2.4 gm WITH MEALS PO ; Start 11/03/18 at 18:00 Terazosin HCl (Hytrin) 10 mg HS PO ; Start 11/03/18 at 21:00 Fish Oil (Fish Oil) 1,000 mg DAILY PO Last administered on 11/04/18 09:19; Admin Dose 1,000 MG; Start 11/03/18 at 18:30 Pantoprazole (Protonix Tab) 40 mg DAILY@0600 PO Last administered on 11/04/18at 06:17; Admin Dose 40 MG; Start 11/04/18 at 06:00 Atorvastatin Calcium (Lipitor) 10 mg HS PO ; Start 11/03/18 at 21:00 Diagnostic Test (Pha) (Accu-Chek) 1 ea 02 XX ; Start 11/05/18 at 02:00 Insulin Aspart (Novolog Insulin Pen) NOVOLOG *MILD* ALGORI... Q4 SC ; Start 11/04/18 at 05:00 Sodium Chloride 1,000 ml @ 30 mls/hr Q24H IV Last administered on 11/04/18at 05:00; Admin Dose 30 MLS/HR; Start 11/04/18 at 05:00; Stop 11/05/18 at 14:19 Miscellaneous Information 1 ea NOTE XX ; Start 11/04/18 at 05:30 Glucose (Glutose) 15 gm Q15M PRN PO DECREASED GLUCOSE; Start 11/04/18 at 05:30 Glucose (Glutose) 22.5 gm Q15M PRN PO DECREASED GLUCOSE; Start 11/04/18 at 05:30 Dextrose (D50w Syringe) 25 ml Q15M PRN IV DECREASED GLUCOSE; Start 11/04/18 at 05:30 Dextrose (D50w Syringe) 50 ml Q15M PRN IV DECREASED GLUCOSE; Start 11/04/18 at 05:30 Glucagon (Glucagen) 1 mg Q15M PRN IM DECREASED GLUCOSE; Start 11/04/18 at 05:30 Glucose (Glutose) 15 gm Q15M PRN BUCCAL DECREASED GLUCOSE; Start 11/04/18 at 05:30 RADHA LECHUGA MD November 04, 2018 15:15
[2018-11-04] MEDS ORDERED: SODIUM CHLORIDE 0.9% 1L BAG IV PRN (15:30)
[2018-11-04] MEDS ORDERED: ALBUMIN HUMAN 25% 100 ML IV PRN (15:30)
[2018-11-04] MEDS ORDERED: GELATIN SIZE 100 SPONGE ONE (16:12)
[2018-11-04] MEDS ORDERED: THROMBIN 5000 UNIT VIAL ONE (16:12)
[2018-11-04] MEDS ORDERED: LIDOCAINE 1% (MPF) 30 ML INJ ONE (16:12)
[2018-11-04] MEDS ORDERED: BUPIVACAINE 0.25% (MPF) 30 ML INJ ONE (16:12)
[2018-11-04] MEDS ORDERED: HEPARIN 1000 UNITS/ML 10 ML INJ ONE (16:13)
[2018-11-04] MEDS ORDERED: POLYMYXIN/BACITRACIN 1L IRRIG ONE (16:13)
--- NOTE | 2018-11-04 18:29 | PREAC ---
Date/Time of Note Date/Time of Note DATE: 11/04/18 TIME: 18:28 Anesthesia Eval and Record Evaluation Time Pre-Procedure Interview DATE: 11/04/18 TIME: 18:28 Age 63 Sex male NPO: 8 hrs Preoperative diagnosis BLEEDING LEFT AV FISTULA Planned procedure LEFT AV FISTULA REVISION Past Medical History Past Medical History: Includes Cardio: HTN Musculoskeletal: Osteoarthritis Renal: ESRD on dialysis Heme: Anemia Surgery & Anesthesia Issues No known issue Meds Anticoagulation: No Beta Armiro within 24 hr: Yes Reported Medications Acetaminophen* (Acetaminophen*) 650 Mg Tablet, 650 MG PO Q4 PRN for MILD PAIN LEVEL 1-3, #30 TAB 11/03/18 Amlodipine Besylate* (Norvasc*) 10 Mg Tablet, 10 MG PO DAILY, TAB HOLD FOR SBP <110 OR HR <60 11/03/18 Sertraline Hcl* (Zoloft*) 50 Mg Tablet, 50 MG PO DAILY, #30 TAB 11/03/18 [place]-3/Dha/Epa/Fish Oil (Fish Oil 500 mg Softgel) 1 Each Capsule, 1 EACH PO DAILY, CAP 11/03/18 Gabapentin* (Gabapentin*) 300 Mg Capsule, 300 MG PO TID, #90 CAP 11/03/18 Pravastatin Sodium* (Pravastatin Sodium*) 40 Mg Tablet, 40 MG PO HS, TAB 11/03/18 Hydralazine Hcl* (Hydralazine Hcl*) 50 Mg Tab, 50 MG PO QID, #60 TAB HOLD FOR SBP<110 OR HR<60 11/03/18 Propranolol Hcl* (Propranolol Hcl*) 10 Mg Tablet, 10 MG PO BID, TAB HOLD FOR SBP<110 OR HR<60 11/03/18 Terazosin Hcl* (Terazosin Hcl*) 10 Mg Capsule, 10 MG PO HS, CAP 11/03/18 Sevelamer Carbonate* (Renvela*) 800 Mg Tablet, 2.4 GM PO WITH MEALS, TAB 11/03/18 Magnesium Hydroxide* (Milk Of Magnesia*) 400 Mg/5 Ml Oral.susp, 30 ML PO QHS PRN for CONSTIPATION, ML 11/03/18 Folic Acid/Vitamin B Comp W-C (Nephrocaps Capsule) 1 Mg Capsule, 1 MG PO DAILY, CAP 11/03/18 Aspirin (Low Dose Aspirin) 81 Mg Tablet.dr, 81 MG PO DAILY, #30 TAB 11/03/18 Omeprazole* (Omeprazole*) 20 Mg Capsule.dr, 20 MG PO DAILY, #30 CAP 11/03/18 Ascorbic Acid* (Vitamin C*) 500 Mg Capsule.sa, 500 MG PO DAILY, CAP 11/03/18 Current Medications IV Flush (NS 3 ml) 3 ml PER PROTOCOL IV ; Start 11/03/18 at 17:30 Ondansetron HCl (Zofran Inj) 4 mg Q6H PRN IV NAUSEA/VOMITING; Start 11/03/18 at 17:30 Acetaminophen (Tylenol Tab) 650 mg Q6H PRN PO .PAIN 1-3 OR TEMP Last administered on 11/04/18at 09:28; Admin Dose 650 MG; Start 11/03/18 at 17:30 Amlodipine Besylate (Norvasc) 10 mg DAILY PO Last administered on 11/04/18 09:19; Admin Dose 10 MG; Start 11/04/18 at 09:00 Ascorbic Acid (Vitamin C) 500 mg DAILY PO Last administered on 11/04/18at 09:19; Admin Dose 500 MG; Start 11/04/18 at 09:00 Gabapentin (Neurontin) 300 mg TID PO Last administered on 11/04/18at 12:25; Admin Dose 300 MG; Start 11/03/18 at 21:00 Hydralazine HCl (Apresoline) 50 mg QID PO Last administered on 11/04/18at 12:25; Admin Dose 50 MG; Start 11/03/18 at 21:00 Magnesium Hydroxide (Milk Of Mag) 30 ml QHS PRN PO CONSTIPATION; Start 11/03/18 at 17:30 Propranolol HCl (Inderal) 10 mg BID PO Last administered on 11/04/18at 09:19; Admin Dose 10 MG; Start 11/03/18 at 21:00 Sertraline HCl (Zoloft) 50 mg DAILY PO Last administered on 11/04/18 09:19; Admin Dose 50 MG; Start 11/04/18 at 09:00 Sevelamer Carbonate (Renvela) 2.4 gm WITH MEALS PO ; Start 11/03/18 at 18:00 Terazosin HCl (Hytrin) 10 mg HS PO ; Start 11/03/18 at 21:00 Fish Oil (Fish Oil) 1,000 mg DAILY PO Last administered on 5/15/19at 09:19; Admin Dose 1,000 MG; Start 11/03/18 at 18:30 Pantoprazole (Protonix Tab) 40 mg DAILY@0600 PO Last administered on 11/04/18at 06:17; Admin Dose 40 MG; Start 11/04/18 at 06:00 Atorvastatin Calcium (Lipitor) 10 mg HS PO ; Start 11/03/18 at 21:00 Diagnostic Test (Pha) (Accu-Chek) 1 ea 02 XX ; Start 11/05/18 at 02:00 Insulin Aspart (Novolog Insulin Pen) NOVOLOG *MILD* ALGORI... Q4 SC ; Start 11/04/18 at 05:00 Sodium Chloride 1,000 ml @ 30 mls/hr Q24H IV Last administered on 11/04/18at 05:00; Admin Dose 30 MLS/HR; Start 11/04/18 at 05:00; Stop 11/05/18 at 14:19 Miscellaneous Information 1 ea NOTE XX ; Start 11/04/18 at 05:30 Glucose (Glutose) 15 gm Q15M PRN PO DECREASED GLUCOSE; Start 11/04/18 at 05:30 Glucose (Glutose) 22.5 gm Q15M PRN PO DECREASED GLUCOSE; Start 11/04/18 at 05:30 Dextrose (D50w Syringe) 25 ml Q15M PRN IV DECREASED GLUCOSE; Start 11/04/18 at 05:30 Dextrose (D50w Syringe) 50 ml Q15M PRN IV DECREASED GLUCOSE; Start 11/04/18 at 05:30 Glucagon (Glucagen) 1 mg Q15M PRN IM DECREASED GLUCOSE; Start 11/04/18 at 05:30 Glucose (Glutose) 15 gm Q15M PRN BUCCAL DECREASED GLUCOSE; Start 11/04/18 at 05:30 Albumin Human 100 ml @ 100 mls/hr WITH DIALYSIS PRN IV SBP <90 DURING DIALYSIS; Start 11/04/18 at 15:30 Sodium Chloride (NS) -To prime the dialy... DIRECTED FOR HD PRN IV HD; Start 11/04/18 at 15:30 Meds reviewed: Yes Allergies Coded Allergies: Penicillins (Verified Allergy, Unknown, 11/03/18) Allergies Reviewed: Yes Labs/Studies Labs Reviewed: Reviewed by anesthesiologist Result Diagram: 11/04/18 0640 11/04/18 0640 Laboratory Tests 11/04/18 06:40 Blood Bank Test 11/04/18 08:28 Antibody Screen NEGATIVE Blood Product Summary Counts Blood Type O NEGATIVE Crossmatch Red Blood Cells test: N/A Pre-procedure Exam Last vitals Vital Signs Date Temp Pulse Resp B/P (MAP) Pulse Ox O2 O2 Flow FiO2 Time Delivery Rate 11/04/18 65 16:21 11/04/18 97.6 19 135/64 97 15:29 (87) 11/04/18 Room Air 03:20 11/03/18 2 13:41 Airway: Adequate mouth opening, Adequate thyromental dist Mallampati: Mallampati II Teeth: Normal Lung: Normal Heart: Normal ASA Physical Status ASA physical status: 3 Emergency: E Planned Anesthetic General/MAC: LMA Planned Pain Management Parenteral pain med Pre-operative Attestations Prior to commencing anesthesia and surgery, the patient was re-evaluated, there was verification of: *The patient's identity *The results of appropriate recent lab work and preoperative vital signs *The above evaluation not changing prior to induction *Anesthetic plan, risk benefits, alternative and complications discussed with patient/family; questions answered; patient/family understands, accepts and wishes to proceed. MADELINE DOMINGO November 04, 2018 18:29
[2018-11-04] MEDS ORDERED: SEVOFLURANE 15 MIN ONE (18:30)
[2018-11-04] MEDS ORDERED: GLYCOPYRROLATE 0.4 MG INJ ONE (18:30)
[2018-11-04] MEDS ORDERED: CEFAZOLIN 1 GM INJ ONE (18:30)
[2018-11-04] MEDS ORDERED: NEOSTIGMINE 3 MG/3 ML SYRINGE ONE (18:30)
[2018-11-04] MEDS ORDERED: ROCURONIUM 50 MG INJ ONE (18:36)
[2018-11-04] MEDS ORDERED: PROPOFOL 20 ML ONE (18:36)
[2018-11-04] MEDS ORDERED: LIDOCAINE 2% (SDV) 5 ML INJ ONE (18:36)
[2018-11-04] MEDS ORDERED: FENTAnyl 50 MCG/ML VIAL ONE (18:50)
[2018-11-04] MEDS ORDERED: POLYMYXIN/BACITRACIN 1L IRRIG IRR ONE (19:20)
--- NOTE | 2018-11-04 19:34 | PAC ---
Date/Time of Note Date/Time of Note DATE: 11/04/18 TIME: 19:33 Post-Anesthesia Notes Post-Anesthesia Note Last documented vital signs Vital Signs Date Temp Pulse Resp B/P (MAP) Pulse Ox O2 O2 Flow FiO2 Time Delivery Rate 11/04/18 98.2 65 128/76 97 1932 11/04/18 97.6 19 135/64 97 15:29 (87) 11/04/18 Room Air 03:20 11/03/18 2 13:41 Activity: WNL Respiratory function: WNL Cardiovascular function: WNL Mental status: Baseline Pain reasonably controlled: Yes Hydration appropriate: Yes Nausea/Vomiting absent: Yes MADELINE DOMINGO November 04, 2018 19:34
[2018-11-04] MEDS ORDERED: DIPHENHYDRAMINE 50 MG INJ IV PRN (20:00)
[2018-11-04] MEDS ORDERED: hydrALAzine 20 MG INJ IV PRN (20:00)
[2018-11-04] MEDS ORDERED: MEPERIDINE 25 MG INJ IV PRN (20:00)
[2018-11-04] MEDS ORDERED: EPHEDrine 25 MG/5 ML SYG IV PRN (20:00)
[2018-11-04] MEDS ORDERED: ALBUTEROL 0.083% (NEB) 2.5 MG/3 ML AMP HHN PRN (20:00)
[2018-11-04] MEDS ORDERED: LABETALOL HCL 20MG INJ IV PRN (20:00)
[2018-11-04] MEDS ORDERED: ONDANSETRON 4 MG INJ IV PRN (20:00)
[2018-11-04] MEDS ORDERED: morphine 2 MG INJ IV PRN ×2 (20:00)
--- NOTE | 2018-11-04 20:10 | OPR ---
Date/Time of Note Date/Time of Note DATE: 11/04/18 TIME: 20:08 Operative Report Procedure Date: November 04, 2018 Preoperative Diagnosis Clotted left arm AV fistula Bleeding left arm AV fistula Postoperative Diagnosis Same Operation/Procedure Performed Thrombectomy and revision left arm AV fistula Control of bleeding Surgeon see signature line Hr Payroll Coordinator None Anesthesia Type: general Estimated Blood Loss: 50 - 100 ml's Transfusion none Specimen None Grafts/Implants none Complications none Disposition: PACU Procedure Description Patient was placed in supine position prepped and draped in usual sterile fashion timeout was called antibiotics was given left arm was unwrapped there was a bleeding point from the left arm basilic vein transposition fistula control of bleeding was obtained using pressure technique I noticed that the fistula was clotted thrombectomy was performed opening up the arterial inflow thrombectomy of the venous limb was also performed using a 4 [place] Lacey catheter venous backflow was good the fistula was closed using interrupted 4-0 Prolene sutures and skin was also closed using interrupted 4-0 Prolene sutures Steri-Strips were applied patient tolerated procedure well FELIPE AL MD November 04, 2018 20:10
[2018-11-05] VITALS (28 sets, daily range): BP systolic 91–157; BP diastolic 34–96; PULSE 62–75; RESP 18
[2018-11-05] MEDS: ACCU-CHEK XX SCH (02:00)
[2018-11-05] MEDS: PANTOPRAZOLE (EC) 40 MG TAB PO SCH (06:11)
[2018-11-05] MEDS: INSULIN ASPART [NOVOLOG] 3 ML PEN SC SCH ×4 (07:55→20:56)
[2018-11-05] MEDS: SERTRALINE 50 MG TAB PO SCH (08:48)
[2018-11-05] MEDS: SEVELAMER CARBONATE 2.4 GM PKT PO SCH ×3 (08:48→18:03)
[2018-11-05] MEDS: ASCORBIC ACID 500 MG TAB PO SCH (08:48)
[2018-11-05] MEDS: FISH OIL 1,000 MG CAP PO SCH (08:48)
[2018-11-05] MEDS: GABAPENTIN 300 MG CAP PO SCH ×3 (08:48→20:42)
[2018-11-05] MEDS: PROPRANOLOL 10 MG TAB PO SCH ×2 (08:49→20:41)
[2018-11-05] MEDS: AMLODIPINE 10 MG TAB PO SCH (08:50)
--- NOTE | 2018-11-05 15:15 | CONS ---
Assessment/Plan Assessment/Plan Assessment/Plan (Daily) 1. acute hyperkalemia- improving 2. LUE AVF site bleeding possibly arterial bleeding 3. ESRD on HD TTS schedule 4. H/o HTN 5. Morbid obesity Plan: s/p Thrombectomy and Revision of left arm AVF , s/p HD overnight 1.8 L removed- will plan for HD tomorrow then pt will be on His Original schedule TTS will follow up Consultation Date/Type/Reason Admit Date/Time November 05, 2018 at 10:38 Initial Consult Date 11/04/18 Type of Consult NEPHROLOGY Requesting Provider: FELIPE AL MD Date/Time of Note DATE: 11/05/18 TIME: 15:15 24 HR Interval Summary Free Text/Dictation s/p Thrombectomy and Revision of left arm AVF , s/p HD overnight 1.8 L removed Exam/Review of Systems Exam Vitals Vital Signs Date Temp Pulse Resp B/P (MAP) Pulse Ox O2 O2 Flow FiO2 Time Delivery Rate 11/05/18 73 12:11 11/05/18 98.0 18 140/67 97 Room Air 11:32 (91) 11/03/18 2 13:41 Intake and Output 11/04/18 11/04/18 11/05/18 1515:00 23:00 07:00 IntakeIntake Total 150 ml OutputOutput Total 100 ml 200 ml BalanceBalance 50 ml -200 ml Exam Gen: Well developed man supine in gurney, some discomfort from tourniquet. Eyes: PERRL, no icterus HEENT: Moist mucous membranes, clear oropharynx Neck: No lymphadenopathy, supple Card: Regular rate and rhythm, no murmurs Pulm: Clear to auscultation bilaterally. Abd: Soft, nontender, nondistended. Normoactive bowel sounds. Ext: L upper arm has fistula firmly secured with tourniquet. Skin: warm, dry, well perfused. Results Result Diagram: 11/05/18 0711/05/18704 Results 24hrs Laboratory Tests Test 11/04/18 17:18 11/04/18 20:30 11/05/18 07:05 11/05/18 07:54 Bedside Glucose 148 153 132 White Blood Count 7.1 Red Blood Count 2.50 L Hemoglobin 7.7 L Hematocrit 23.7 L Mean Corpuscular 94.8 Volume Mean Corpuscular 30.8 Hemoglobin Mean Corpuscular 32.5 Hemoglobin Concent Red Cell 16.8 H Distribution Width Platelet Count 142 Mean Platelet Volume 9.9 Immature 0.400 Granulocytes % Neutrophils % 87.3 H Lymphocytes % 5.0 L Monocytes % 4.9 Eosinophils % 2.1 Basophils % 0.3 Nucleated Red Blood 0.0 Cells % Immature 0.030 Granulocytes # Neutrophils # 6.2 Lymphocytes # 0.4 L Monocytes # 0.4 Eosinophils # 0.2 Basophils # 0.0 Nucleated Red Blood 0.0 Cells # Sodium Level 141 Potassium Level 5.5 H Chloride Level 103 Carbon Dioxide Level 24 Anion Gap 14 H Blood Urea Nitrogen 63 H Creatinine 8.65 H Est Glomerular 6 L Filtrat Rate mL/min Glucose Level 139 Calcium Level 8.8 Phosphorus Level 5.7 H Magnesium Level 2.5 Test 11/05/18 11:49 Bedside Glucose 152 Medications Medication Current Medications IV Flush (NS 3 ml) 3 ml PER PROTOCOL IV ; Start 11/03/18 at 17:30 Ondansetron HCl (Zofran Inj) 4 mg Q6H PRN IV NAUSEA/VOMITING; Start 11/03/18 at 17:30 Acetaminophen (Tylenol Tab) 650 mg Q6H PRN PO .PAIN 1-3 OR TEMP Last administered on 11/04/18at 09:28; Admin Dose 650 MG; Start 11/03/18 at 17:30 Amlodipine Besylate (Norvasc) 10 mg DAILY PO Last administered on 11/04/18at 09:19; Admin Dose 10 MG; Start 11/04/18 at 09:00 Ascorbic Acid (Vitamin C) 500 mg DAILY PO Last administered on 11/05/18at 08:48; Admin Dose 500 MG; Start 11/04/18 at 09:00 Gabapentin (Neurontin) 300 mg TID PO Last administered on 11/05/18at 13:31; Admin Dose 300 MG; Start 11/03/18 at 21:00 Hydralazine HCl (Apresoline) 50 mg QID PO Last administered on 11/05/18at 13:32; Admin Dose 50 MG; Start 11/03/18 at 21:00 Magnesium Hydroxide (Milk Of Mag) 30 ml QHS PRN PO CONSTIPATION; Start 11/03/18 at 17:30 Propranolol HCl (Inderal) 10 mg BID PO Last administered on 11/04/18at 21:19; Admin Dose 10 MG; Start 11/03/18 at 21:00 Sertraline HCl (Zoloft) 50 mg DAILY PO Last administered on 11/05/18at 08:48; Ad min Dose 50 MG; Start 11/04/18 at 09:00 Sevelamer Carbonate (Renvela) 2.4 gm WITH MEALS PO Last administered on 11/05/18at 11:50; Admin Dose 2.4 GM; Start 11/03/18 at 18:00 Terazosin HCl (Hytrin) 10 mg HS PO Last administered on 11/04/18at 21:19; Admin Dose 10 MG; Start 11/03/18 at 21:00 Fish Oil (Fish Oil) 1,000 mg DAILY PO Last administered on 11/05/18at 08:48; Admin Dose 1,000 MG; Start 11/03/18 at 18:30 Pantoprazole (Protonix Tab) 40 mg DAILY@0600 PO Last administered on 11/05/18at 06:11; Admin Dose 40 MG; Start 11/04/18 at 06:00 Atorvastatin Calcium (Lipitor) 10 mg HS PO Last administered on 11/04/18at 21:19; Admin Dose 10 MG; Start 11/03/18 at 21:00 Diagnostic Test (Pha) (Accu-Chek) 1 ea 02 XX ; Start 11/05/18 at 02:00 Miscellaneous Information 1 ea NOTE XX ; Start 11/04/18 at 05:30 Glucose (Glutose) 15 gm Q15M PRN PO DECREASED GLUCOSE; Start 11/04/18 at 05:30 Glucose (Glutose) 22.5 gm Q15M PRN PO DECREASED GLUCOSE; Start 11/04/18 at 05:30 Dextrose (D50w Syringe) 25 ml Q15M PRN IV DECREASED GLUCOSE; Start 11/04/18 at 05:30 Dextrose (D50w Syringe) 50 ml Q15M PRN IV DECREASED GLUCOSE; Start 11/04/18 at 05:30 Glucagon (Glucagen) 1 mg Q15M PRN IM DECREASED GLUCOSE; Start 11/04/18 at 05:30 Glucose (Glutose) 15 gm Q15M PRN BUCCAL DECREASED GLUCOSE; Start 11/04/18 at 05:30 Albumin Human 100 ml @ 100 mls/hr WITH DIALYSIS PRN IV SBP <90 DURING DIALYSIS Last administered on 11/05/18at 07:42; Admin Dose 100 MLS/HR; Start 11/04/18 at 15:30 Sodium Chloride (NS) -To prime the dialy... DIRECTED FOR HD PRN IV HD; Start 11/04/18 at 15:30 Insulin Aspart (Novolog Insulin Pen) NOVOLOG *MILD* ALGORITHM WITH MEALS BEDTIME SC Last administered on 11/05/18at 11:58; Admin Dose 1 UNIT; Start 11/05/18 at 07:55 RADHA LECHUGA MD November 05, 2018 15:15
--- NOTE | 2018-11-05 16:43 | PN ---
Date/Time of Note Date/Time of Note DATE: 11/05/18 TIME: 16:41 Assessment/Plan VTE Prophylaxis Risk score (from Nsg)>0 risk: 4 SCD applied (from Ns): No SCD contraindicated: low risk/ambulating Pharmacological prophylaxis: NA/contraindicated Pharm contraindication: bleeding Lines/Catheters IV Catheter Type (from Nrs): Peripheral IV Urinary Cath still in place: No Assessment/Plan Assessment/Plan 63 yo obese man with history of ESRD presents with bleeding fistula #Bleeding fistula - Holding antiplatelets, anticoag. - Dr. Allan consulted - Now s/p fistulagram with thrombectomy last night. #ESRD - Dr. Mcclain following - Plan for HD today. #HTN - Continue home antihypertensives #Dyslipidemia - Cont home statin DVT: SCDs GI: PPI Dispo: Anticipate discharge in 24-48 hours. Result Diagram: 11/05/1870411/05/18704 Subjective 24 Hr Interval Summary Free Text/Dictation Went to OR last night for thrombectomy. This morning doing well, tolerating diet, pain free. Dialysis later today. Exam/Review of Systems Exam Vitals Vital Signs Date Temp Pulse Resp B/P (MAP) Pulse Ox O2 O2 Flow FiO2 Time Delivery Rate 11/05/18 75 16:18 11/05/18 98.5 18 135/85 98 Room Air 15:34 (102) 11/03/18 2 13:41 Intake and Output 11/04/18 11/04/18 11/05/18 1515:00 23:00 07:00 IntakeIntake Total 150 ml OutputOutput Total 100 ml 200 ml BalanceBalance 50 ml -200 ml Exam Gen: Well developed man supine in gurney, comfortable. Eyes: PERRL, no icterus HEENT: Moist mucous membranes, clear oropharynx Neck: No lymphadenopathy, supple Card: Regular rate and rhythm, no murmurs Pulm: Clear to auscultation bilaterally. Abd: Soft, nontender, nondistended. Normoactive bowel sounds. Ext: L upper arm fistula post thrombectomy with dressing. Peripheral radial pulse strong, hand well perfused. Skin: warm, dry, well perfused. Results Results 24hrs Laboratory Tests Test 11/04/18 17:18 11/04/18 20:30 11/05/18 07:05 11/05/18 07:54 Bedside Glucose 148 153 132 White Blood Count 7.1 Red Blood Count 2.50 L Hemoglobin 7.7 L Hematocrit 23.7 L Mean Corpuscular 94.8 Volume Mean Corpuscular 30.8 Hemoglobin Mean Corpuscular 32.5 Hemoglobin Concent Red Cell 16.8 H Distribution Width Platelet Count 142 Mean Platelet Volume 9.9 Immature 0.400 Granulocytes % Neutrophils % 87.3 H Lymphocytes % 5.0 L Monocytes % 4.9 Eosinophils % 2.1 Basophils % 0.3 Nucleated Red Blood 0.0 Cells % Immature 0.030 Granulocytes # Neutrophils # 6.2 Lymphocytes # 0.4 L Monocytes # 0.4 Eosinophils # 0.2 Basophils # 0.0 Nucleated Red Blood 0.0 Cells # Sodium Level 141 Potassium Level 5.5 H Chloride Level 103 Carbon Dioxide Level 24 Anion Gap 14 H Blood Urea Nitrogen 63 H Creatinine 8.65 H Est Glomerular 6 L Filtrat Rate mL/min Glucose Level 139 Calcium Level 8.8 Phosphorus Level 5.7 H Magnesium Level 2.5 Test 11/05/18 11:49 Bedside Glucose 152 Medications Medication Current Medications IV Flush (NS 3 ml) 3 ml PER PROTOCOL IV ; Start 11/03/18 at 17:30 Ondansetron HCl (Zofran Inj) 4 mg Q6H PRN IV NAUSEA/VOMITING; Start 11/03/18 at 17:30 Acetaminophen (Tylenol Tab) 650 mg Q6H PRN PO .PAIN 1-3 OR TEMP Last administered on 11/04/18at 09:28; Admin Dose 650 MG; Start 11/03/18 at 17:30 Amlodipine Besylate (Norvasc) 10 mg DAILY PO Last administered on 11/04/18at 09:19; Admin Dose 10 MG; Start 11/04/18 at 09:00 Ascorbic Acid (Vitamin C) 500 mg DAILY PO Last administered on 11/05/18at 08:48; Admin Dose 500 MG; Start 11/04/18 at 09:00 Gabapentin (Neurontin) 300 mg TID PO Last administered on 11/05/18at 13:31; Admin Dose 300 MG; Start 11/03/18 at 21:00 Hydralazine HCl (Apresoline) 50 mg QID PO Last administered on 11/05/18at 13:32; Admin Dose 50 MG; Start 11/03/18 at 21:00 Magnesium Hydroxide (Milk Of Mag) 30 ml QHS PRN PO CONSTIPATION; Start 11/03/18 at 17:30 Propranolol HCl (Inderal) 10 mg BID PO Last administered on 11/04/18at 21:19; Admin Dose 10 MG; Start 11/03/18 at 21:00 Sertraline HCl (Zoloft) 50 mg DAILY PO Last administered on 11/05/18at 08:48; Admin Dose 50 MG; Start 11/04/18 at 09:00 Sevelamer Carbonate (Renvela) 2.4 gm WITH MEALS PO Last administered on 11/05/18at 11:50; Admin Dose 2.4 GM; Start 11/03/18 at 18:00 Terazosin HCl (Hytrin) 10 mg HS PO Last administered on 11/04/18at 21:19; Admin Dose 10 MG; Start 11/03/18 at 21:00 Fish Oil (Fish Oil) 1,000 mg DAILY PO Last administered on 11/05/18at 08:48; Admin Dose 1,000 MG; Start 11/03/18 at 18:30 Pantoprazole (Protonix Tab) 40 mg DAILY@0600 PO Last administered on 11/05/18at 06:11; Admin Dose 40 MG; Start 11/04/18 at 06:00 Atorvastatin Calcium (Lipitor) 10 mg HS PO Last administered on 11/04/18at 21:19; Admin Dose 10 MG; Start 11/03/18 at 21:00 Diagnostic Test (Pha) (Accu-Chek) 1 ea 02 XX ; Start 11/05/18 at 02:00 Miscellaneous Information 1 ea NOTE XX ; Start 11/04/18 at 05:30 Glucose (Glutose) 15 gm Q15M PRN PO DECREASED GLUCOSE; Start 11/04/18 at 05:30 Glucose (Glutose) 22.5 gm Q15M PRN PO DECREASED GLUCOSE; Start 11/04/18 at 05:30 Dextrose (D50w Syringe) 25 ml Q15M PRN IV DECREASED GLUCOSE; Start 11/04/18 at 05:30 Dextrose (D50w Syringe) 50 ml Q15M PRN IV DECREASED GLUCOSE; Start 11/04/18 at 05:30 Glucagon (Glucagen) 1 mg Q15M PRN IM DECREASED GLUCOSE; Start 11/04/18 at 05:30 Glucose (Glutose) 15 gm Q15M PRN BUCCAL DECREASED GLUCOSE; Start 11/04/18 at 05:30 Albumin Human 100 ml @ 100 mls/hr WITH DIALYSIS PRN IV SBP <90 DURING DIALYSIS Last administered on 11/05/18at 07:42; Admin Dose 100 MLS/HR; Start 11/04/18 at 15:30 Sodium Chloride (NS) -To prime the dialy... DIRECTED FOR HD PRN IV HD; Start 11/04/18 at 15:30 Insulin Aspart (Novolog Insulin Pen) NOVOLOG *MILD* ALGORITHM WITH MEALS BEDTIME SC Last administered on 11/05/18at 11:58; Admin Dose 1 UNIT; Start 11/05/18 at 07:55 LUIS DANIEL WATKINS MD November 05, 2018 16:43
--- NOTE | 2018-11-05 18:05 | QN ---
Documentation Comment As Physician Advisor I have reviewed the chart and have determined that as of today, this patient continues to receive medically necessary care required for the diagnosis and treatment of illness or injury. There has been no unreasonable delay in the rendering of medically necessary services, and medically necessary care has required a length of stay greater than two midnights. Additional information gained during the stay now suggests this patient should have been classified as an inpatient at the time of admission, and I will change the status to inpatient to reflect that medical judgment. Besides the notes from the medical providers, the following information was used in this determination: Fistula requiring vascular surgery intervention Please call me at [phone] with questions. ALESHA LUND MD November 05, 2018 18:05
[2018-11-05] MEDS: ATORVASTATIN 10 MG TAB PO SCH (20:42)
[2018-11-05] MEDS: TERAZOSIN 5 MG CAP PO SCH (20:43)
[2018-11-06] VITALS (8 sets, daily range): BP systolic 140–158; BP diastolic 56–81; PULSE 60–88; RESP 18
[2018-11-06] MEDS: ACCU-CHEK XX SCH (02:00)
[2018-11-06] MEDS: PANTOPRAZOLE (EC) 40 MG TAB PO SCH (05:55)
[2018-11-06] MEDS: INSULIN ASPART [NOVOLOG] 3 ML PEN SC SCH ×3 (07:55→17:45)
[2018-11-06] MEDS: SERTRALINE 50 MG TAB PO SCH (08:33)
[2018-11-06] MEDS: SEVELAMER CARBONATE 2.4 GM PKT PO SCH ×3 (08:33→17:38)
[2018-11-06] MEDS: ASCORBIC ACID 500 MG TAB PO SCH (08:33)
[2018-11-06] MEDS: GABAPENTIN 300 MG CAP PO SCH ×2 (08:33→12:23)
[2018-11-06] MEDS: FISH OIL 1,000 MG CAP PO SCH (08:33)
[2018-11-06] MEDS: AMLODIPINE 10 MG TAB PO SCH (08:35)
[2018-11-06] MEDS: PROPRANOLOL 10 MG TAB PO SCH (08:35)
--- NOTE | 2018-11-06 11:02 | CONS ---
Assessment/Plan Assessment/Plan Assessment/Plan (Daily) 1. acute hyperkalemia- improving 2. LUE AVF site bleeding possibly arterial bleeding 3. ESRD on HD TTS schedule 4. H/o HTN 5. Morbid obesity Plan: s/p Thrombectomy and Revision of left arm AVF , HD ordered for tomorrow then pt will be on His Original schedule TTS ok to d/c home today will follow up Consultation Date/Type/Reason Admit Date/Time November 05, 2018 at 10:38 Initial Consult Date 11/04/18 Type of Consult NEPHROLOGY Requesting Provider: FELIPE AL MD Date/Time of Note DATE: 11/06/18 TIME: 11:02 Exam/Review of Systems Exam Vitals Vital Signs Date Temp Pulse Resp B/P (MAP) Pulse Ox O2 O2 Flow FiO2 Time Delivery Rate 11/06/18 60 08:08 11/06/18 98.0 18 140/56 97 Room Air 07:32 (84) 11/03/18 2 13:41 Intake and Output 11/05/18 11/05/18 11/06/18 1515:00 23:00 07:00 IntakeIntake Total 250 ml 580 ml OutputOutput Total 2800 ml BalanceBalance -2550 ml 580 ml Exam Gen: Well developed man supine in gurney, some discomfort from tourniquet. Eyes: PERRL, no icterus HEENT: Moist mucous membranes, clear oropharynx Neck: No lymphadenopathy, supple Card: Regular rate and rhythm, no murmurs Pulm: Clear to auscultation bilaterally. Abd: Soft, nontender, nondistended. Normoactive bowel sounds. Ext: L upper arm has fistula firmly secured with tourniquet. Skin: warm, dry, well perfused. Results Result Diagram: 11/06/18 0549 11/06/18 0549 Results 24hrs Laboratory Tests Test 11/05/18 11:49 11/05/18 18:07 11/05/18 20:53 11/06/18 03:20 Bedside Glucose 152 226 H 152 157 Test 11/06/18 05:49 11/06/18 08:22 White Blood Count 4.7 #L Red Blood Count 2.42 L Hemoglobin 7.6 L Hematocrit 23.3 L Mean Corpuscular 96.3 Volume Mean Corpuscular 31.4 Hemoglobin Mean Corpuscular 32.6 Hemoglobin Concent Red Cell 16.4 H Distribution Width Platelet Count 111 #L Mean Platelet Volume 9.5 Immature 0.400 Granulocytes % Neutrophils % 69.2 Lymphocytes % 15.5 Monocytes % 10.8 Eosinophils % 3.9 Basophils % 0.2 Nucleated Red Blood 0.0 Cells % Immature 0.020 Granulocytes # Neutrophils # 3.2 Lymphocytes # 0.7 L Monocytes # 0.5 Eosinophils # 0.2 Basophils # 0.0 Nucleated Red Blood 0.0 Cells # Sodium Level 141 Potassium Level 4.5 Chloride Level 102 Carbon Dioxide Level 29 Anion Gap 10 Blood Urea Nitrogen 35 #H Creatinine 5.22 #H Est Glomerular 11 L Filtrat Rate mL/min Glucose Level 123 Calcium Level 8.9 Bedside Glucose 134 Medications Medication Current Medications IV Flush (NS 3 ml) 3 ml PER PROTOCOL IV ; Start 11/03/18 at 17:30 Ondansetron HCl (Zofran Inj) 4 mg Q6H PRN IV NAUSEA/VOMITING; Start 11/03/18 at 17:30 Acetaminophen (Tylenol Tab) 650 mg Q6H PRN PO .PAIN 1-3 OR TEMP Last administered on 11/04/18at 09:28; Admin Dose 650 MG; Start 11/03/18 at 17:30 Amlodipine Besylate (Norvasc) 10 mg DAILY PO Last administered on 11/04/18 09:19; Admin Dose 10 MG; Start 11/04/18 at 09:00 Ascorbic Acid (Vitamin C) 500 mg DAILY PO Last administered on 11/06/18at 08:33; Admin Dose 500 MG; Start 11/04/18 at 09:00 Gabapentin (Neurontin) 300 mg TID PO Last administered on 11/06/18at 08:33; Admin Dose 300 MG; Start 11/03/18 at 21:00 Hydralazine HCl (Apresoline) 50 mg QID PO Last administered on 11/05/18at 20:41; Admin Dose 50 MG; Start 11/03/18 at 21:00 Magnesium Hydroxide (Milk Of Mag) 30 ml QHS PRN PO CONSTIPATION; Start 11/03/18 at 17:30 Propranolol HCl (Inderal) 10 mg BID PO Last administered on 11/05/18at 20:41; Admin Dose 10 MG; Start 11/03/18 at 21:00 Sertraline HCl (Zoloft) 50 mg DAILY PO Last administered on 11/06/18 08:33; A dmin Dose 50 MG; Start 11/04/18 at 09:00 Sevelamer Carbonate (Renvela) 2.4 gm WITH MEALS PO Last administered on 11/06/18 08:33; Admin Dose 2.4 GM; Start 11/03/18 at 18:00 Terazosin HCl (Hytrin) 10 mg HS PO Last administered on 11/05/18at 20:43; Admin Dose 10 MG; Start 11/03/18 at 21:00 Fish Oil (Fish Oil) 1,000 mg DAILY PO Last administered on 11/06/18 08:33; Admin Dose 1,000 MG; Start 11/03/18 at 18:30 Pantoprazole (Protonix Tab) 40 mg DAILY@0600 PO Last administered on 11/06/18 05:55; Admin Dose 40 MG; Start 11/04/18 at 06:00 Atorvastatin Calcium (Lipitor) 10 mg HS PO Last administered on 11/05/18at 20:42; Admin Dose 10 MG; Start 11/03/18 at 21:00 Diagnostic Test (Pha) (Accu-Chek) 1 ea 02 XX ; Start 11/05/18 at 02:00 Miscellaneous Information 1 ea NOTE XX ; Start 11/04/18 at 05:30 Glucose (Glutose) 15 gm Q15M PRN PO DECREASED GLUCOSE; Start 11/04/18 at 05:30 Glucose (Glutose) 22.5 gm Q15M PRN PO DECREASED GLUCOSE; Start 11/04/18 at 05:30 Dextrose (D50w Syringe) 25 ml Q15M PRN IV DECREASED GLUCOSE; Start 11/04/18 at 05:30 Dextrose (D50w Syringe) 50 ml Q15M PRN IV DECREASED GLUCOSE; Start 11/04/18 at 05:30 Glucagon (Glucagen) 1 mg Q15M PRN IM DECREASED GLUCOSE; Start 11/04/18 at 05:30 Glucose (Glutose) 15 gm Q15M PRN BUCCAL DECREASED GLUCOSE; Start 11/04/18 at 05:30 Albumin Human 100 ml @ 100 mls/hr WITH DIALYSIS PRN IV SBP <90 DURING DIALYSIS Last administered on 11/05/18at 07:42; Admin Dose 100 MLS/HR; Start 11/04/18 at 15:30 Sodium Chloride (NS) -To prime the dialy... DIRECTED FOR HD PRN IV HD; Start 11/04/18 at 15:30 Insulin Aspart (Novolog Insulin Pen) NOVOLOG *MILD* ALGORITHM WITH MEALS BEDTIME SC Last administered on 11/05/18at 18:13; Admin Dose 3 UNIT; Start 11/05/18 at 07:55 RADHA LECHUGA MD November 06, 2018 11:02
--- NOTE | 2018-11-06 11:31 | PDOCDIS ---
Discharge Instructions DIAGNOSIS Discharge Diagnosis Bleeding and thrombosed AV fistula, s/p thrombectomy and revision CONDITION [id number] Patient Condition: [id number] Fair HOME CARE INSTRUCTIONS: [id number] Diet Instructions: [id number] Reduced Sodium ACTIVITY: [id number] Activity Restrictions: [id number] No Restrictions FOLLOW UP/APPOINTMENTS Follow-up Plan 1. Avoid heavy lifting more than 10 lbs with the left arm for 1-2 weeks. 2. The dialysis nurse may change the dressing. Don't remove or manipulate the dressing yourself. 3. Continue all medications as prescribed. 4. Continue Friday//Friday dialysis as scheduled. LUIS DANIEL WATKINS MD November 06, 2018 11:31
--- NOTE | 2018-11-06 14:49 | RADRPT ---
Vent Rate: 68 bpm RR Interval: 0 msec MA Interval: 174 msec QRS Duration: 86 msec QT Interval: 432 msec QTC Interval: 459 msec P-R-T Keller: 22 - -9 - 0 degrees Normal sinus rhythm Low voltage QRS Cannot rule out Anterior infarct , age undetermined Abnormal ECG Electronically Signed By: [facility]
--- NOTE | 2018-11-06 19:01 | DS ---
Date/Time of Note Date/Time of Note DATE: 11/06/18 TIME: 19:00 Discharge Summary Admission/Discharge Info Admit Date/Time November 05, 2018 at 10:38 Discharge Date/Time November 06, 2018 at 18:00 Discharge Diagnosis Bleeding and thrombosed AV fistula, s/p thrombectomy and revision Patient Condition: Good Consults Dr. Allan, vascular surgery Dr. Mcclain, nephrology Procedures Left arm AV fistula thrombectomy and revision Hx of Present Illness Mr. Taylor is an obese man with ESRD who presents with a bleeding AV fistula. He has a bad habit of picking at his fistula scabs. A week ago was at [facility] ED for the same problem, but it was dressed in the ED and he did not require admission or surgery. Last dialysis was Friday (3 days [employer]). On Friday he peeled his dressing back and picked at his scab a bit and it started oozing blood, so he put the dressing back. Friday he went to dialysis as scheduled, the nurse removed the dressing and there was a brisk jet of high pressure arterial blood. The patient was sent to the ED without getting dialysis. He stays at [facility]. In the ED he was afebrile, vitals normal. Labs notable for Hgb 7.5 and K 5.6, otherwise unremarkable. Dr. Segura evaluated the fistula for repair but was unable. Tourniquet was left in place, Dr. Allan from vascular surgery was abdi obrien. Hospital Course The patient was taken to OR by Dr. Allan, he was found to have a partially thrombosed fistula. A thrombectomy and revision was done. The patient got dialysis afterwards through the fistula with good flow. He was monitored overnight and there was no further bleeding. He was discharged in good condition. Home Meds Reported Medications Acetaminophen* (Acetaminophen*) 650 Mg Tablet, 650 MG PO Q4 PRN for MILD PAIN LEVEL 1-3, #30 TAB 11/03/18 Amlodipine Besylate* (Norvasc*) 10 Mg Tablet, 10 MG PO DAILY, TAB HOLD FOR SBP <110 OR HR <60 11/03/18 Sertraline Hcl* (Zoloft*) 50 Mg Tablet, 50 MG PO DAILY, #30 TAB 11/03/18 [place]-3/Dha/Epa/Fish Oil (Fish Oil 500 mg Softgel) 1 Each Capsule, 1 EACH PO DAILY, CAP 11/03/18 Gabapentin* (Gabapentin*) 300 Mg Capsule, 300 MG PO TID, #90 CAP 11/03/18 Pravastatin Sodium* (Pravastatin Sodium*) 40 Mg Tablet, 40 MG PO HS, TAB 11/03/18 Hydralazine Hcl* (Hydralazine Hcl*) 50 Mg Tab, 50 MG PO QID, #60 TAB HOLD FOR SBP<110 OR HR<60 11/03/18 Propranolol Hcl* (Propranolol Hcl*) 10 Mg Tablet, 10 MG PO BID, TAB HOLD FOR SBP<110 OR HR<60 11/03/18 Terazosin Hcl* (Terazosin Hcl*) 10 Mg Capsule, 10 MG PO HS, CAP 11/03/18 Sevelamer Carbonate* (Renvela*) 800 Mg Tablet, 2.4 GM PO WITH MEALS, TAB 11/03/18 Magnesium Hydroxide* (Milk Of Magnesia*) 400 Mg/5 Ml Oral.susp, 30 ML PO QHS PRN for CONSTIPATION, ML 11/03/18 Folic Acid/Vitamin B Comp W-C (Nephrocaps Capsule) 1 Mg Capsule, 1 MG PO DAILY, CAP 11/03/18 Aspirin (Low Dose Aspirin) 81 Mg Tablet.dr, 81 MG PO DAILY, #30 TAB 11/03/18 Omeprazole* (Omeprazole*) 20 Mg Capsule.dr, 20 MG PO DAILY, #30 CAP 11/03/18 Ascorbic Acid* (Vitamin C*) 500 Mg Capsule.sa, 500 MG PO DAILY, CAP 11/03/18 Follow-up Plan 1. Avoid heavy lifting more than 10 lbs with the left arm for 1-2 weeks. 2. The dialysis nurse may change the dressing. Don't remove or manipulate the dressing yourself. 3. Continue all medications as prescribed. 4. Continue Friday//Friday dialysis as scheduled. Primary Care Provider Care Physician No Primary Time spent on discharge: > 30 minutes Pending Labs Laboratory Tests Test 11/05/18 20:53 11/06/18 03:20 11/06/18 05:49 11/06/18 08:22 Bedside 152 157 134 Glucose mg/dL (70-220) mg/dL (70-220) mg/dL (70-220) White Blood 4.7 Count 10^3/ul (4.8-1 0.8) Red Blood 2.42 Count 10^6/ul (4.70- 6.10) Hemoglobin 7.6 g/dl (14.0-18. 0) Hematocrit 23.3 % (42.0-52.0) Mean 96.3 Corpuscular fl (82.0-101.0 Volume ) Mean 31.4 Corpuscular pg (29.0-33.0) Hemoglobin Mean 32.6 Corpuscular g/dl (32.0-37. Hemoglobin Conc 0) ent Red Cell 16.4 Distribution % (11.5-14.5) Width Platelet Count 111 10^3/UL (140-4 15) Mean Platelet 9.5 Volume fl (7.4-10.4) Immature 0.400 Granulocytes % % (0.001-0.429 ) Neutrophils % 69.2 % (39.0-77.0) Lymphocytes % 15.5 % (15.0-51.0) Monocytes % 10.8 % (0.0-11.0) Eosinophils % 3.9 % (0.0-7.0) Basophils % 0.2 % (0.0-2.0) Nucleated Red 0.0 Blood Cells % /100WBC (0.0-0 .0) Immature 0.020 Granulocytes # 10^3/ul (0.0-0 .031) Neutrophils # 3.2 10^3/ul (1.6-7 .5) Lymphocytes # 0.7 10^3/ul (0.8-2 .9) Monocytes # 0.5 10^3/ul (0.3-0 .9) Eosinophils # 0.2 10^3/ul (0.0-0 .5) Basophils # 0.0 10^3/ul (0.0-0 .1) Nucleated Red 0.0 Blood Cells # 10^3/ul (0.0-0 .0) Sodium Level 141 mmol/L (135-14 4) Potassium 4.5 Level mmol/L (3.5-5. 1) Chloride Level 102 mmol/L (97-110 ) Carbon Dioxide 29 Level mmol/L (21-31) Anion Gap 10 (5-13) Blood Urea 35 Nitrogen mg/dl (7-20) Creatinine 5.22 mg/dl (0.61-1. 24) Est Glomerular 11 Filtrat mL/min (>60) Rate mL/min Glucose Level 123 mg/dl (70-220) Calcium Level 8.9 mg/dl (8.4-10. 2) Test 11/06/18 12:17 11/06/18 17:35 Bedside 151 189 Glucose mg/dL (70-220) mg/dL (70-220) LUIS DANIEL WATKINS MD November 06, 2018 19:01
== END 2018-11-06 18:00 | DRG 252 ==
LOC: E/R 12:39 → TEL 16:31 → OBSVTOIN 11-05 10:38
PROVIDERS: ADMIT Internal Medicine; ATTEND Internal Medicine
PROC: 03CY0ZZ Extirpation of Matter from Upper Artery, Open Approach (ICD-10-PCS; 2018-11-04)
PROC: 30233N1 Transfusion of Nonautologous Red Blood Cells into Peripheral Vein, Percutaneous Approach (ICD-10-PCS; 2018-11-04)
PROC: 03WY07Z Revision of Autologous Tissue Substitute in Upper Artery, Open Approach (ICD-10-PCS; principal; 2018-11-04 21:00)
PROC: 5A1D70Z Performance of Urinary Filtration, Intermittent, Less than 6 Hours Per Day (ICD-10-PCS; 2018-11-05)
DX: T82.868A Thrombosis due to vascular prosthetic devices, implants and grafts, initial encounter (principal); N18.6 End stage renal disease; I12.0 Hypertensive chronic kidney disease with stage 5 chronic kidney disease or end stage renal disease; T82.838A Hemorrhage due to vascular prosthetic devices, implants and grafts, initial encounter; Z99.2 Dependence on renal dialysis; E78.5 Hyperlipidemia, unspecified; E87.5 Hyperkalemia
CPT/HCPCS: 36415; 36430; 71045; 80048; 80053; 82962; 83036; 83735; 84100; 84443; 85025; 86706; 86850; 86900; 86901; 86920; 87081; 87340; 90935; 93005; G0378; C1725; J0690; J1644; J1815; J2710; J3010; J7030; J7040; P9016; P9047